=== PATIENT | male | born 1985 | race Asian ===

== ENCOUNTER 2018-01-25 12:01 | Inpatient (IN) | payer BC ==
[~2018-01-25 12:01] MED LIST: Iopamidol 370 76% 100 ML VIAL ONE
[2018-01-25 12:46] LABS: #Monocytes 0.6 thou/uL (0.11-0.59); #Neutrophils 13.4 thou/uL (1.40-6.50); %Basophils 0.1 % (0.0-1.0); %Eosinophils 0.2 % (0.0-10.0); %Lymphocytes 6.3 % (21.0-51.0); %Monocytes 3.8 % (0.0-10.0); %Neutrophils 89.7 % (42.0-75.0); Hemoglobin 15.8 g/dL (14.0-18.0); Mean Corpuscular HGB CONC 33.2 g/dL (32.0-36.0); Mean Corpuscular Hemoglobin 29.7 pg (27.0-31.0); Mean Corpuscular Volume 89.6 fL (78.0-98.0); Mean Platelet Volume 7.5 fL (7.4-10.4); Platelet Count 227 thou/uL (130-400); RBC Distribution Width 11.5 % (11.5-14.5)
[2018-01-25] MEDS ORDERED: Ondansetron PF 4 MG/2 ML Vial ONE ×3 (13:03→19:22)
[2018-01-25] MEDS ORDERED: Fentanyl 100 MCG/2 ML VIAL ONE (13:03)
[2018-01-25 13:04] LABS: ALT (SGPT) 29 U/L (8-55); AST (SGOT) 22 U/L (5-34); Albumin 5.1 g/dL (3.5-5.0); Alkaline Phosphatase 62 U/L (40-150); Anion Gap 16 mmol/L (10-20); BUN (Urea Nitrogen) 18 mg/dL (8.9-20.6); Bilirubin, Total 0.9 mg/dL (0.2-1.2); Calc. Creatinine Clearance 0 mL/min (70-130); Calcium 10.2 mg/dL (7.8-10.44); Carbon Dioxide 24 mmol/L (22-29); Chloride 102 mmol/L (98-107); Estimated GFR-MDRD 86; Globulin 3.8 g/dL (2.4-3.5); Glucose 119 mg/dL (70-105); Potassium 4.4 mmol/L (3.5-5.1); Protein, Total 8.9 g/dL (6.0-8.3); Sodium 138 mmol/L (136-145)
[2018-01-25] MEDS ORDERED: Piperacillin/Tazobactam 4.5 GM VIAL ONE (14:00)
--- NOTE | 2018-01-25 14:21 | CT ---
CT ABDOMEN AND PELVIS WITH CONTRAST Comparison: None. History: Sharp epigastric abdominal pain that migrates to the right lower quadrant. Technique: Multiple contiguous axial images were obtained in a CT of the abdomen and pelvis with cont rast. Coronal reformats were performed. FINDINGS: The appendix is enlarged and contains surrounding stranding changes consistent with acute appendiciti s. No free air or free fluid are seen in the abdomen or pelvis. The liver, gallbladder, kidneys, adrenal glands, spleen, and pancreas are unremarkable. The large and small bowel are unremarkable. No abdominal or pelvic lymphadenopathy are seen. Osseous structures, visualized inferior thorax and abdominal wall soft tissues are unremarkable. IMPRESSION: Acute appendicitis. Dr. Morrell notified of the findings at 1:54 p.m. on 01-25-18. POS: [facility]
[2018-01-25 15:54] LABS: Bilirubin Negative (Negative); Blood, Urine Negative (Negative); Clarity CLEAR (Clear); Glucose, Urine (Dipstick) Negative (Negative); Leukocyte Negative (Negative); Nitrite Negative (Negative); Protein, Urine (Dipstick) Trace mg/dL (Neg-Trace); Urobilinogen 0.2 mg/dL (0.2-1.0); pH, Urine 6.5 (5.0-9.0)
[2018-01-25 16:00] LABS: Specific Gravity, Urine 1.058 (1.002-1.036)
[2018-01-25] MEDS ORDERED: Glycopyrrolate 0.2 MG/ML 5 ML SYRINGE ONE (16:44)
[2018-01-25] MEDS ORDERED: Succinylcholine Chloride 20 MG/ML 10 ml SYRINGE FS ONE (16:44)
[2018-01-25] MEDS ORDERED: PROPOFOL 200 MG/20 ML VIAL ONE (16:44)
[2018-01-25] MEDS ORDERED: Dexamethasone 20 MG/5 ML VIAL ONE (16:44)
[2018-01-25] MEDS ORDERED: Lidocaine 1% PF 5 ML VIAL ONE (16:44)
[2018-01-25] MEDS ORDERED: Ketorolac Tromethamine 30 MG/ML VIAL ONE (16:44)
[2018-01-25] MEDS ORDERED: Midazolam HCl 2 mg/2 ml Vial ONE (17:15)
[2018-01-25] MEDS ORDERED: Fentanyl 250 MCG/5 ML VIAL ONE (17:15)
[2018-01-25] MEDS ORDERED: Bupivacaine/Epinephrine 0.25% 30 ML VIAL ONE (17:27)
[2018-01-25] MEDS ORDERED: Ondansetron HCl/PF 4 MG/2 ML Vial IVP PRN (18:52)
[2018-01-25] MEDS ORDERED: Promethazine HCl 25 MG/ML VIAL SLOW IVP PRN (18:52)
[2018-01-25] MEDS ORDERED: Promethazine HCl 25 MG/ML VIAL IM PRN ×2 (18:52→21:08)
[2018-01-25] MEDS ORDERED: D5 1/2 NS w/20 mEq KCL 1,000 ML ONE (20:03)
[2018-01-25] MEDS ORDERED: HYDROcodone/Acetaminophen 10/325 mg Tablet PO PRN (21:08)
[2018-01-25] MEDS ORDERED: Ketorolac Tromethamine 30 MG/ML VIAL IVP PRN (21:08)
[2018-01-25] MEDS ORDERED: Dextrose 5% in Water 1,000 ML IV PRN (21:08)
[2018-01-25] MEDS ORDERED: hydrALAZINE 20 MG/ML VIAL SLOW IVP PRN (21:08)
[2018-01-25] MEDS ORDERED: Ondansetron PF 4 MG/2 ML Vial IVP PRN (21:08)
[2018-01-25] MEDS ORDERED: Dextrose 50% Abboject 50 ML SYRINGE SLOW IVP PRN (21:08)
[2018-01-25] MEDS: D5 1/2 NS w/20 mEq KCL 1,000 ML IV SCH (22:08)
[2018-01-25] MEDS: Famotidine 20 MG TAB PO SCH (22:08)
[2018-01-25] MEDS: Famotidine/PF 20 mg/2ml Vial SLOW IVP SCH (22:08)
[2018-01-25] MEDS ORDERED: Morphine 4 MG/ML VIAL SLOW IVP PRN (22:15)
--- NOTE | 2018-01-26 02:04 | OP ---
DATE OF PROCEDURE: 01/25/2018 PREOPERATIVE DIAGNOSIS: Acute appendicitis. POSTOPERATIVE DIAGNOSIS: Acute appendicitis. PROCEDURE: Laparoscopic appendectomy. ANESTHESIA: General. ESTIMATED BLOOD LOSS: None. COMPLICATIONS: None. SPECIMEN: Appendix. FINDINGS: Appendicitis. TECHNIQUE: The patient was taken to the operating room and laid supine on the operating room table after general anesthetic was obtained, the Greco catheter was placed. The abdomen was shaved, prepped, and draped in a sterile fashion. An incision was made below the umbilicus. Cautery dissected down to encircle over the fascia. Abdominal cavity entered bluntly using a Rosa clamp. Holding stitch of PDS placed on each side of the fascia. Woodrow trocar was placed. High-flow pneumoperitoneum was obtained. A suprapubic femoral port, left lower quadrant femoral port were placed under direct visualization. The cecum was rolled over to reveal acute appendicitis. A window was made at the base of the appendix and the mesoappendix. The laparoscopic stapler was fired across the base of the appendix. Another load was fired across the mesoappendix. The appendix was placed in an EndoCatch bag and brought out through the Woodrow. All port sites were infiltrated using local anesthetic. The right lower quadrant and pelvis were irrigated using sterile solution. There was localized inflammatory change, but no evidence of perforation in the abdomen. No damage to any intraabdominal structures. All ports were removed under camera visualization without bleeding. Pneumoperitoneum was let down. The PDS was used to close the fascial defect below the umbilicus. All incisions were irrigated and closed using 4-0 Monocryl and Dermabond. The patient was sent to Recovery in stable condition. All instrument counts, needle counts, and lap counts were correct. Job ID: [id number]
[2018-01-26] MEDS: Piperacillin/Tazobactam 3.375 GM in Sodium Chloride 0.9% 100 ML IVPB SCH ×3 (02:36→14:35)
--- NOTE | 2018-01-26 02:49 | HP ---
CHIEF COMPLAINT: Right lower quadrant pain. HISTORY OF PRESENT ILLNESS: This is a 32-year-old male presents with a 24-hour history of pain in his lower abdomen, described as 8/10 and sharp, associated with fever up to 103 at home and chills. He vomited once. He has had anorexia. No change in stools. No chronic abdominal pain. No history of inflammatory bowel disease. PAST MEDICAL HISTORY: Denies. PAST SURGICAL HISTORY: Denies. MEDICINES: None. ALLERGIES: NO KNOWN DRUG ALLERGIES. SOCIAL HISTORY: Occasional alcohol. No smoking. No other drugs. He is . REVIEW OF SYSTEMS: A 10-system review of systems is otherwise negative unless described above. PHYSICAL EXAMINATION: VITAL SIGNS: Blood pressure is 107/72, pulse 93, respirations 18, and temperature 102.8. HEENT: Sclerae anicteric. Oropharynx clear. NECK: No lymphadenopathy. CHEST: Clear. HEART: Regular rate and rhythm. ABDOMEN: Soft, tender in right lower quadrant. No localized guarding or rebound. No abdominal hernias. EXTREMITIES: No significant edema to extremities. DIAGNOSTIC DATA: CT scan shows acute appendicitis. ASSESSMENT: Acute appendicitis. PLAN: Laparoscopic appendectomy. Risks, benefits, and alternatives discussed. He gives consent. We will do this today. Job ID: [id number]
[2018-01-26] MEDS: D5 1/2 NS w/20 mEq KCL 1,000 ML IV SCH (06:09)
[2018-01-26] MEDS: Famotidine 20 MG TAB PO SCH (07:57)
[2018-01-26] MEDS: Famotidine/PF 20 mg/2ml Vial SLOW IVP SCH (07:57)
--- NOTE | 2018-01-26 10:36 | PRG ---
DATE OF SERVICE: 01/26/2018 SUBJECTIVE Postop day 1, laparoscopic appendectomy. Mr. Bonilla is doing well. He has no complaints, tolerating regular diet. He is up and ambulatory. He is afebrile. PHYSICAL EXAMINATION: VITAL SIGNS: Stable. ABDOMEN: Soft. The incisions are healing well. No evidence of infection. ASSESSMENT: Postop day 1, laparoscopic appendectomy for locally inflammatory appendicitis. PLAN: Home today on Augmentin for a week. Prescription given for tramadol. PREOPERATIVE DIAGNOSIS: Acute appendicitis. POSTOPERATIVE DIAGNOSIS: Acute appendicitis. PROCEDURE PERFORMED: Laparoscopic appendectomy. Job ID: [id number]
[2018-01-26 11:47] VITALS: BP 104/66; TEMP 97.9
--- NOTE | 2018-01-28 11:58 | EKG ---
Test Reason : PRE-OP Blood Pressure : / mmHG Vent. Rate : 092 BPM Atrial Rate : 092 BPM P-R Int : 164 ms QRS Dur : 092 ms QT Int : 332 ms P-R-T Axes : 040 022 016 degrees QTc Int : 410 ms Normal sinus rhythm Nonspecific T wave abnormality Abnormal ECG Confirmed by PABLO LITTLEJOHN, REJI ([id number]), fan mail editor SHIV MAGUIRE ([id number]) on 01/28/2018 11:58:01 AM Referred By: Confirmed By:REJI SHAH MD
== END 2018-01-26 14:38 | disposition home or self-care (01) | DRG 343 ==
LOC: ERS 12:01 → SJJU 20:54
PROVIDERS: ADMIT Surgery; ATTEND Surgery
PROC: 0DTJ4ZZ Resection of Appendix, Percutaneous Endoscopic Approach (ICD-10-PCS; principal; 2018-01-25)
DX: K35.80 Unspecified acute appendicitis (principal)
CPT/HCPCS: 36415; 74177; 80053; 81003; 83690; 85025; 88304; 93005; 96361; 96365; 96374; 96375; J0131; J1100; J1885; J2001; J2250; J2405; J2543; J2704; J3010; J7050